=== PATIENT | female | born 1965 | race Caucasian/White ===

== ENCOUNTER 2023-11-27 11:01 | Emergency (ER) | payer OTHER, SELFPAY ==
[2023-11-27 11:04] VITALS: BP 137/82; PULSE 86; RESP 18; TEMP 36.9; O2SAT 96
--- NOTE | 2023-11-27 11:59 | ED.UPPEXIN ---
HPI - Extremity Injury (Upper) General Chief Complaint: Extremity Injury, Upper Stated Complaint: Right Hand Thumb Laceration Time Seen by Provider: 11/27/23 11:55 Source: patient, RN notes reviewed and old records reviewed Mode of arrival: ambulatory Limitations: no limitations History of Present Illness HPI narrative: Left-hand dominant patient presents with complaints of laceration to the right thumb. Injury happened just prior to arrival. 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 She is unsure of last tetanus shot. She has not taken anything for her symptoms prior to arrival. Minimal active bleeding. Neurovascular status intact. No other injury or trauma. Related Data Home Medications Medication Instructions Recorded Confirmed [employer] 11/27/23 ibuprofen 800 mg tablet 800 mg PO Q6H PRN Pain, Mild 11/27/23 11/27/23 liraglutide 0.6 mg/0.1 mL (18 mg/3 mg subcut 11/27/23 mL) subcutaneous pen injector (Victoza 2-Miguel Ángel) omeprazole 20 mg capsule,delayed 20 mg PO DAILY 11/27/23 11/27/23 release Allergies Allergy/AdvReac Type Severity Reaction Status Date / Time latex Allergy Unknown Unknown Verified 11/27/23 11:05 Review of Systems Review of Systems: All systems reviewed & are unremarkable except as noted in HPI and below Constitutional: Constitutional: Reports no additional constitutional complaints ENT: Reports system reviewed and no additional complaints, except as documented Cardiovascular: Cardiovascular: Reports no additional cardiovascular complaints Respiratory: Respiratory: Reports no additional respiratory complaints Gastrointestinal: Gastrointestinal: Reports no additional gastrointestinal complaints Integumentary/Breasts: Skin/Breast: Reports system reviewed and no additional complaints, except as docu and Reports as per HPI [facility] Past Medical History Medical History Depression Endometrial cancer Surgical History Surgical History History of total hysterectomy Previous section Family History Family History Father Cerebrovascular accident Family history of diabetes mellitus in first degree relative Kidney failure Other Family history of malignant neoplasm of breast Social History Social History Smoking status: Former smoker Second hand tobacco smoke exposure: No Smoking end date: 03/15/92 Alcohol intake: current Comments At the time of my signature, I reviewed and agree with the nursing past medical, surgical, social, and family history. There is no relevant family history pertinent to the patient complaint. Exam Const: General: cooperative, no acute distress, alert and awake Orientation/consciousness: oriented to person, oriented to place and oriented to time HENMT: Head: normal to inspection Resp: Effort & Inspection: normal respiratory effort and able to speak in complete sentences Auscultation: clear to auscultation bilaterally, no crackles, no rales, no rhonchi and no wheezes Cardio: Palpation: normal PMI Rate: regular rate Rhythm: regular rhythm Heart sounds: S1 normal heart sound present and S2 normal heart sound present Skin: Trauma: laceration (Right thumb) Neuro: General: oriented to person, oriented to place and oriented to time Cranial nerves: Yes CN's II-XII intact bilaterally Extrem: Right upper extremity: full ROM, normal capillary refill and Extremity exam: right hand normal capillary refill, neuromotor exam normal and neurosensory exam normal Hand/finger images: 1. 2 cm flap laceration, spares the nail Psych: Appearance: grossly normal Thought process: Normal thought process present Insight: Good insight present (Psych) Judgement: Good judgement present (Psych) Course Course Hernan
[2023-11-27] MEDS: TETANUS,DIPHTHERIA,AC PERTUSSIS ADULT (0.5 ML) BOOSTRIX IM (12:16)
[2023-11-27] MEDS: LIDOCAINE HCL 1% LOCAL INJ 2 ML AMPUL 6 ML INFILTRATE (12:32)
== END 2023-11-27 12:59 | disposition home or self-care (01) ==
PROVIDERS: Emergency Provider Nurse Practitioner Family; PCP Family Medicine
DX: S61.011A Laceration without foreign body of right thumb without damage to nail, initial encounter (principal); W26.0XXA Contact with knife, initial encounter; Z23 Encounter for immunization; Z87.891 Personal history of nicotine dependence; Z85.42 Personal history of malignant neoplasm of other parts of uterus
CPT/HCPCS: 12001; 90471; 90715; 99212; G0463